=== PATIENT | male | born 1965 | race African-American/Black ===

== ENCOUNTER 2019-03-27 03:23 | Inpatient (IN) | payer OTHER ==
[~2019-03-27] VITALS: Ht 188 cm; Wt 69.0 kg
[2019-03-27] VITALS (54 sets, daily range): BP systolic 106–154; BP diastolic 36–99
[2019-03-27] MEDS ORDERED: SODIUM CHLORIDE 0.9% 1,000 ML IV ONE (03:42)
[2019-03-27 04:09] LABS: HEMATOCRIT. 40.7 % (36.0-48.0); MEAN CORPUSCULAR HEMOGLOBIN 25.1 pg (28.0-32.0); MEAN CORPUSCULAR VOLUME 78.9 fL (81.0-99.0); MEAN PLATELET VOLUME 7.9 fl (7.4-10.4); PLATELET 323 x1000/uL (130-400); RED BLOOD CELL COUNT 5.16 mill/uL (4.2-5.4); RED CELL DISTRIBUTION WIDTH 16.3 % (11.6-14.6)
[2019-03-27 04:16] LABS: CHLORIDE 108 mEq/L (98-107)
[2019-03-27 04:21] LABS: ETHANOL BLOOD < 10 mg/dL
[2019-03-27 04:25] LABS: CREATINE KINASE 40 IU/L (26-192)
[2019-03-27] MEDS ORDERED: DEXAMETHASONE 10 MG/ML VIAL IV ONE (04:30)
[2019-03-27] MEDS ORDERED: MANNITOL 12.5G (25%) VIAL 50ML IV ONE (05:15)
[2019-03-27 06:21] LABS: PLATELET ESTIMATE NORMAL
[2019-03-27] MEDS ORDERED: GADOBENATE DIMEGLUMINE 529 MG/ML 10ML IV ONE (10:19)
[2019-03-27] MEDS ORDERED: NICARDIPINE 100 MG in SODIUM CHLORIDE 0.9% 60 ML IV PRN (10:45)
[2019-03-27] MEDS ORDERED: MORPHINE SULFATE 2 MG/ML CPJ (NOT FOR IM USE) IV PRN (10:45)
[2019-03-27] MEDS: DEXAMETHASONE 10 MG/ML VIAL IV SCH ×4 (11:53→23:17)
[2019-03-27] MEDS: DEXT 5%/LACTATED RINGERS 1,000 ML IV SCH (11:54)
[2019-03-27] MEDS ORDERED: LEVETIRACETAM 500MG PREMIX 100 ML IV SCH (17:00)
[2019-03-27] MEDS ORDERED: MANNITOL 20% 200 ML IV ONE (19:45)
[2019-03-27] MEDS: LEVETIRACETAM 500MG in SODIUM CHLORIDE 0.9% 100ML IV SCH (21:14)
[2019-03-27] MEDS: MANNITOL 20% 100 ML IV SCH (23:17)
[2019-03-28] VITALS (93 sets, daily range): BP systolic 74–153; BP diastolic 30–114
[2019-03-28 03:24] LABS: CLARITY URINE CLEAR (CLEAR); COLOR URINE YELLOW (YELLOW); KETONES URINE NEGATIVE (NEGATIVE); LEUKOCYTE ESTERASE URINE NEGATIVE (NEGATIVE); NITRITE URINE NEGATIVE (NEGATIVE); OCCULT BLOOD URINE NEGATIVE (NEGATIVE); PROTEIN URINE NEGATIVE (NEGATIVE); SPECIFIC GRAVITY URINE 1.037 (1.005-1.030); UROBILINOGEN URINE 0.2 E.U./dL (0.2-1.0)
[2019-03-28] MEDS: DEXAMETHASONE 10 MG/ML VIAL IV SCH ×6 (03:37→23:23)
[2019-03-28] MEDS: MANNITOL 20% 100 ML IV SCH ×5 (03:38→19:50)
[2019-03-28 03:41] LABS: *AMPHETAMINES SCREEN URINE NEGATIVE (NEGATIVE); *BARBITURATES SCREEN URINE NEGATIVE (NEGATIVE); *BENZODIAZEPINES SCREEN URINE NEGATIVE (NEGATIVE); *COCAINE SCREEN URINE NEGATIVE (NEGATIVE); METHADONE URINE SCREEN NEGATIVE (NEGATIVE)
[2019-03-28 03:42] LABS: CANNABINOID URINE SCREEN NEGATIVE (NEGATIVE); OPIATES URINE SCREEN NEGATIVE (NEGATIVE); PHENCYCLIDINE URINE SCREEN NEGATIVE (NEGATIVE)
[2019-03-28] MEDS: DEXT 5%/LACTATED RINGERS 1,000 ML IV SCH (08:54)
[2019-03-28] MEDS: LEVETIRACETAM 500MG in SODIUM CHLORIDE 0.9% 100ML IV SCH ×2 (10:07→21:01)
[2019-03-28 18:18] LABS: HEMATOCRIT. 39.4 % (42.0-52.0); HEMOGLOBIN. 11.9 g/dL (14.0-18.0); MEAN CORPUSCULAR HEMOGLOBIN 24.7 pg (28.0-32.0); MEAN CORPUSCULAR VOLUME 81.7 fL (80.0-94.0); MEAN PLATELET VOLUME 9.2 fl (7.4-10.4); PLATELET 292 x1000/uL (130-400); RED BLOOD CELL COUNT 4.82 mill/uL (4.7-6.1); RED CELL DISTRIBUTION WIDTH 16.2 % (11.6-14.6)
[2019-03-28 18:21] LABS: PROTHROMBIN TIME 10.4 sec (9.6-11.0)
[2019-03-28 18:30] LABS: CHLORIDE 107 mEq/L (98-107)
[2019-03-28 19:35] LABS: PLATELET ESTIMATE NORMAL
[2019-03-29] VITALS (92 sets, daily range): BP systolic 80–145; BP diastolic 56–99
[2019-03-29] MEDS: DEXAMETHASONE 10 MG/ML VIAL IV SCH ×5 (03:08→19:26)
[2019-03-29] MEDS: DEXT 5%/LACTATED RINGERS 1,000 ML IV SCH (03:09)
[2019-03-29] MEDS ORDERED: BACITRACIN 15GM TUBE TOP ONE (06:33)
[2019-03-29] MEDS ORDERED: POVIDONE-IODINE OINT 28.4GM TOP ONE (06:33)
[2019-03-29] MEDS ORDERED: THROMBIN (BOVINE) 5000 UNITS/VIAL TOP ONE (06:33)
[2019-03-29] MEDS ORDERED: LIDOCAINE HCL/EPINEPHRINE 1%-EPI 1:100,000 20 ML VIAL ONE (06:34)
[2019-03-29] MEDS ORDERED: BACITRACIN 50,000 UNITS/VIAL ONE (06:34)
[2019-03-29] MEDS ORDERED: NORMAL SALINE 0.9% 10 ML SYR ONE (06:34)
[2019-03-29] MEDS ORDERED: MIDAZOLAM HCL 2 MG/2 ML VIAL ONE (07:13)
[2019-03-29] MEDS ORDERED: ROCURONIUM BROMIDE 10MG/ML VIAL 5ML IV ONE (07:13)
[2019-03-29] MEDS ORDERED: FENTANYL CITRATE/PF 50MCG/ML 2ML VIAL ONE ×2 (07:13→08:07)
[2019-03-29] MEDS ORDERED: PROPOFOL 200MG/20ML VIAL IV ONE (07:13)
[2019-03-29] MEDS ORDERED: GLYCOPYRROLATE 0.2 MG/ML 2ML VIAL ONE ×2 (07:13→09:47)
[2019-03-29] MEDS ORDERED: NEOSTIGMINE METHYLSULFATE 1MG/ML 10 ML VIAL ONE (07:13)
[2019-03-29] MEDS ORDERED: NICARDIPINE 100 MG in SODIUM CHLORIDE 0.9% 60 ML IV PRN (07:15)
[2019-03-29] MEDS ORDERED: MANNITOL 20% 500 ML IV ONE (07:20)
[2019-03-29] MEDS ORDERED: PHENYTOIN SODIUM 500MG in SODIUM CHLORIDE 0.9% 50ML IV SCH (07:30)
[2019-03-29] MEDS ORDERED: DEXAMETHASONE 4MG/ML 1ML VIAL ONE (08:07)
[2019-03-29] MEDS ORDERED: ONDANSETRON HCL 4MG/2ML INJ ONE (08:07)
[2019-03-29] MEDS ORDERED: HYDROMORPHONE HCL/PF 2MG/ML (OR) ONE (08:22)
[2019-03-29] MEDS: MORPHINE SULFATE 4 MG/ML CPJ (NOT FOR IM USE) IV PRN ×3 (10:34→19:27)
[2019-03-29] MEDS ORDERED: CEFAZOLIN 1000MG PREMIX 50 ML IV SCH (10:45)
[2019-03-29] MEDS: LEVETIRACETAM 500MG in SODIUM CHLORIDE 0.9% 100ML IV SCH ×2 (11:20→21:20)
[2019-03-29 12:33] LABS: HEMATOCRIT. 35.2 % (42.0-52.0); HEMOGLOBIN. 10.9 g/dL (14.0-18.0); MEAN PLATELET VOLUME 8.5 fl (7.4-10.4); PLATELET 253 x1000/uL (130-400); RED BLOOD CELL COUNT 4.34 mill/uL (4.7-6.1); RED CELL DISTRIBUTION WIDTH 16.3 % (11.6-14.6)
[2019-03-29 12:40] LABS: CHLORIDE 112 mEq/L (98-107)
[2019-03-29 13:05] LABS: BG BASE EXCESS -0.1 mmol/L (-2.0-2.0); BG CARBOXYHEMOGLOBIN 0.1 % (0.5-1.5); BG DEOXYHEMOGLOBIN 0.1 % (0.0-5.0); BG FRACTION INSPIRED OXYGEN 100; BG HCO3 ACT 24.5 mmol/L (22.0-26.0); BG METHEMOGLOBIN 0.4 % (0.0-1.5); BG OXYGEN SATURATION 99.9 % (92.0-98.5); BG OXYHEMOGLOBIN 99.4 % (94.0-97.0); BG PCO2 39.8 mmHg (35.0-45.0); BG PH 7.408 (7.350-7.450); BG SAMPLE SITE RIGHT BRACHIAL; BG TIDAL VOLUME(mL) 500 mL; BG TOTAL HEMOGLOBIN 11.4 g/dL (12.0-18.0); BG VENT MODE VENT - A/C; BG VENT RATE 14 set
[2019-03-29] MEDS ORDERED: CEFAZOLIN SODIUM 1000MG/VIAL IV SCH (14:00)
[2019-03-29 14:01] LABS: PLATELET ESTIMATE NORMAL
[2019-03-29] MEDS ORDERED: LIDOCAINE HCL 1% 20ML VIAL (Pyxis) INJ ONE (14:05)
[2019-03-29] MEDS: PHENYTOIN SODIUM 100MG/2ML VIAL IV SCH ×2 (14:48→21:26)
[2019-03-29] MEDS: CEFAZOLIN 1000MG PREMIX 50 ML IV SCH ×2 (14:57→21:20)
[2019-03-29 15:19] LABS: BG BASE EXCESS -0.9 mmol/L (-2.0-2.0); BG DEOXYHEMOGLOBIN 0.8 % (0.0-5.0); BG FRACTION INSPIRED OXYGEN 40; BG HCO3 ACT 23.8 mmol/L (22.0-26.0); BG METHEMOGLOBIN 0.4 % (0.0-1.5); BG OXYGEN SATURATION 99.2 % (92.0-98.5); BG OXYHEMOGLOBIN 98.8 % (94.0-97.0); BG PCO2 39.7 mmHg (35.0-45.0); BG PH 7.396 (7.350-7.450); BG PO2 190.8 mmHg (75.0-100.0); BG PRESSURE SUPPORT 8; BG SAMPLE SITE RIGHT BRACHIAL; BG TOTAL HEMOGLOBIN 10.7 g/dL (12.0-18.0); BG VENT MODE VENT - CPAP
[2019-03-30] VITALS (61 sets, daily range): BP systolic 97–131; BP diastolic 59–95
[2019-03-30] MEDS: DEXAMETHASONE 10 MG/ML VIAL IV SCH ×4 (00:22→23:53)
[2019-03-30] MEDS: DEXT 5%/LACTATED RINGERS 1,000 ML IV SCH ×2 (00:22→20:36)
[2019-03-30] MEDS: MORPHINE SULFATE 4 MG/ML CPJ (NOT FOR IM USE) IV PRN ×4 (01:06→23:54)
[2019-03-30 05:22] LABS: CHLORIDE 113 mEq/L (98-107); HEMATOCRIT. 29.7 % (42.0-52.0); HEMOGLOBIN. 9.2 g/dL (14.0-18.0); MEAN CORPUSCULAR HEMOGLOBIN 24.8 pg (28.0-32.0); MEAN CORPUSCULAR VOLUME 80.1 fL (80.0-94.0); MEAN PLATELET VOLUME 8.9 fl (7.4-10.4); PLATELET 230 x1000/uL (130-400); RED BLOOD CELL COUNT 3.71 mill/uL (4.7-6.1); RED CELL DISTRIBUTION WIDTH 15.9 % (11.6-14.6)
[2019-03-30] MEDS: CEFAZOLIN 1000MG PREMIX 50 ML IV SCH ×3 (05:41→21:25)
[2019-03-30] MEDS: PHENYTOIN SODIUM 100MG/2ML VIAL IV SCH ×3 (05:41→21:25)
[2019-03-30] MEDS: LEVETIRACETAM 500MG in SODIUM CHLORIDE 0.9% 100ML IV SCH ×2 (09:53→20:35)
[2019-03-30 13:16] LABS: PLATELET ESTIMATE NORMAL
[2019-03-30] MEDS ORDERED: SODIUM CHLORIDE 3% 500 ML IV SCH (13:45)
[2019-03-30] MEDS ORDERED: MANNITOL 20% (20GM/100ML) BAG 500ML PREMIX IV ONE ×2 (13:45)
[2019-03-30] MEDS ORDERED: MANNITOL 20% (20GM/100ML) BAG 500ML PREMIX IV SCH (13:45)
[2019-03-30] MEDS ORDERED: FUROSEMIDE 20MG/2ML VIAL IVP NR (13:45)
[2019-03-30] MEDS ORDERED: DEXAMETHASONE 10 MG/ML VIAL IV NR ×2 (13:45)
[2019-03-30] MEDS ORDERED: DEXAMETHASONE 4MG/ML 1ML VIAL IV SCH (14:00)
[2019-03-30] MEDS ORDERED: MANNITOL 20% 200 ML IV NR (15:00)
[2019-03-30] MEDS ORDERED: SODIUM CHLORIDE 3% 500 ML IV ONE (16:00)
[2019-03-30] MEDS: MANNITOL 20% 100 ML IV SCH (20:35)
[2019-03-31] VITALS (48 sets, daily range): BP systolic 91–137; BP diastolic 57–84
[2019-03-31] MEDS: MANNITOL 20% 100 ML IV SCH ×3 (01:54→13:53)
[2019-03-31] MEDS: MORPHINE SULFATE 4 MG/ML CPJ (NOT FOR IM USE) IV PRN ×3 (01:55→20:55)
[2019-03-31] MEDS: DEXAMETHASONE 10 MG/ML VIAL IV SCH ×4 (05:23→23:59)
[2019-03-31] MEDS: CEFAZOLIN 1000MG PREMIX 50 ML IV SCH ×2 (05:24→13:56)
[2019-03-31] MEDS: PHENYTOIN SODIUM 100MG/2ML VIAL IV SCH ×3 (05:24→20:56)
[2019-03-31 05:49] LABS: HEMATOCRIT. 29.9 % (42.0-52.0); HEMOGLOBIN. 9.1 g/dL (14.0-18.0); MEAN CORPUSCULAR HEMOGLOBIN 24.3 pg (28.0-32.0); MEAN CORPUSCULAR VOLUME 79.6 fL (80.0-94.0); PLATELET 223 x1000/uL (130-400); RED BLOOD CELL COUNT 3.75 mill/uL (4.7-6.1)
[2019-03-31 06:20] LABS: CHLORIDE 116 mEq/L (98-107)
[2019-03-31 08:04] LABS: PLATELET ESTIMATE NORMAL
[2019-03-31] MEDS: LEVETIRACETAM 500MG in SODIUM CHLORIDE 0.9% 100ML IV SCH ×2 (08:29→20:55)
[2019-03-31] MEDS ORDERED: SODIUM CHLORIDE 3% 500 ML IV ONE ×2 (16:00→22:00)
[2019-03-31] MEDS: DEXT 5%/LACTATED RINGERS 1,000 ML IV SCH (18:18)
[2019-04-01] VITALS (41 sets, daily range): BP systolic 96–144; BP diastolic 61–102
[2019-04-01] MEDS: DEXAMETHASONE 10 MG/ML VIAL IV SCH ×4 (06:33→23:45)
[2019-04-01] MEDS: PHENYTOIN SODIUM 100MG/2ML VIAL IV SCH ×3 (06:33→21:03)
[2019-04-01 07:07] LABS: HEMATOCRIT. 31.7 % (42.0-52.0); HEMOGLOBIN. 9.8 g/dL (14.0-18.0); MEAN CORPUSCULAR HEMOGLOBIN 24.7 pg (28.0-32.0); MEAN CORPUSCULAR VOLUME 79.5 fL (80.0-94.0); MEAN PLATELET VOLUME 8.8 fl (7.4-10.4); PLATELET 175 x1000/uL (130-400); RED BLOOD CELL COUNT 3.98 mill/uL (4.7-6.1); RED CELL DISTRIBUTION WIDTH 15.7 % (11.6-14.6)
[2019-04-01 07:13] LABS: CHLORIDE 109 mEq/L (98-107)
[2019-04-01 08:30] LABS: PLATELET ESTIMATE NORMAL
[2019-04-01] MEDS: LEVETIRACETAM 500MG in SODIUM CHLORIDE 0.9% 100ML IV SCH ×2 (09:22→21:02)
[2019-04-01] MEDS: DEXT 5%/LACTATED RINGERS 1,000 ML IV SCH (11:38)
[2019-04-01] MEDS: MORPHINE SULFATE 2 MG/ML CPJ (NOT FOR IM USE) IV PRN ×2 (11:58→21:03)
[2019-04-02] VITALS (47 sets, daily range): BP systolic 98–152; BP diastolic 60–92
[2019-04-02] MEDS: DEXAMETHASONE 10 MG/ML VIAL IV SCH ×2 (05:44→11:57)
[2019-04-02] MEDS: PHENYTOIN SODIUM 100MG/2ML VIAL IV SCH ×3 (05:44→21:23)
[2019-04-02] MEDS: LEVETIRACETAM 500MG in SODIUM CHLORIDE 0.9% 100ML IV SCH ×2 (09:39→21:21)
[2019-04-02 09:53] LABS: HEMOGLOBIN. 10.2 g/dL (14.0-18.0); MEAN CORPUSCULAR HEMOGLOBIN 25.1 pg (28.0-32.0); MEAN CORPUSCULAR VOLUME 78.8 fL (80.0-94.0); MEAN PLATELET VOLUME 8.9 fl (7.4-10.4); PLATELET 210 x1000/uL (130-400); RED BLOOD CELL COUNT 4.06 mill/uL (4.7-6.1); RED CELL DISTRIBUTION WIDTH 15.3 % (11.6-14.6)
[2019-04-02 10:03] LABS: CHLORIDE 104 mEq/L (98-107)
[2019-04-02] MEDS ORDERED: METOCLOPRAMIDE HCL 5MG TABLET PO PRN (11:30)
[2019-04-02] MEDS: DEXT 5%/LACTATED RINGERS 1,000 ML IV SCH (11:55)
[2019-04-02] MEDS: MORPHINE SULFATE 2 MG/ML CPJ (NOT FOR IM USE) IV PRN (18:23)
[2019-04-02] MEDS: DEXAMETHASONE 4MG/ML 1ML VIAL IV SCH (21:21)
[2019-04-03] VITALS (35 sets, daily range): BP systolic 36–130; BP diastolic 29–79
[2019-04-03] MEDS: DEXT 5%/LACTATED RINGERS 1,000 ML IV SCH (05:54)
[2019-04-03] MEDS: PHENYTOIN SODIUM 100MG/2ML VIAL IV SCH ×3 (05:54→22:10)
[2019-04-03] MEDS: LEVETIRACETAM 500MG in SODIUM CHLORIDE 0.9% 100ML IV SCH (08:45)
[2019-04-03] MEDS: DEXAMETHASONE 4MG/ML 1ML VIAL IV SCH ×2 (08:45→22:10)
[2019-04-03 09:34] LABS: BASOPHILS % 0.1 % (0.0-2.0); EOSINOPHILS % 1.2 % (0.0-5.0); HEMATOCRIT. 29.1 % (42.0-52.0); HEMOGLOBIN. 9.5 g/dL (14.0-18.0); LYMPHOCYTES % 7.4 % (20.0-50.0); MEAN CORPUSCULAR HEMOGLOBIN 25.4 pg (28.0-32.0); MEAN CORPUSCULAR VOLUME 77.6 fL (80.0-94.0); MEAN PLATELET VOLUME 8.6 fl (7.4-10.4); MONOCYTES % 6.6 % (2.0-8.0); NEUTROPHILS % 84.7 % (40.0-76.0); PLATELET 204 x1000/uL (130-400); RED BLOOD CELL COUNT 3.74 mill/uL (4.7-6.1); RED CELL DISTRIBUTION WIDTH 15.4 % (11.6-14.6)
[2019-04-03 09:52] LABS: CHLORIDE 104 mEq/L (98-107)
[2019-04-03] MEDS ORDERED: POTASSIUM CHLORIDE 20MEQ/PACKET PO NR (11:45)
[2019-04-03] MEDS: ACETAMINOPHEN 325MG TABLET PO PRN (12:14)
[2019-04-03 12:35] LABS: PLATELET ESTIMATE NORMAL
[2019-04-03] MEDS: LEVETIRACETAM 500MG TABLET PO SCH (22:10)
[2019-04-04 00:49] VITALS: BP 92/58
[2019-04-04] MEDS: DEXT 5%/LACTATED RINGERS 1,000 ML IV SCH (03:17)
[2019-04-04 04:00] VITALS: BP 96/62
[2019-04-04] MEDS: PHENYTOIN SODIUM 100MG/2ML VIAL IV SCH ×3 (05:50→21:28)
[2019-04-04] MEDS: LEVETIRACETAM 500MG TABLET PO SCH ×2 (08:37→21:28)
[2019-04-04] MEDS: DEXAMETHASONE 4MG/ML 1ML VIAL IV SCH ×2 (08:37→21:28)
[2019-04-04 08:43] VITALS: BP 83/50
[2019-04-04 09:16] LABS: BASOPHILS % 0.1 % (0.0-2.0); CHLORIDE 103 mEq/L (98-107); EOSINOPHILS % 3.8 % (0.0-5.0); HEMATOCRIT. 29.1 % (42.0-52.0); HEMOGLOBIN. 9.3 g/dL (14.0-18.0); LYMPHOCYTES % 10.8 % (20.0-50.0); MEAN CORPUSCULAR HEMOGLOBIN 24.9 pg (28.0-32.0); MEAN CORPUSCULAR VOLUME 77.9 fL (80.0-94.0); MEAN PLATELET VOLUME 8.4 fl (7.4-10.4); MONOCYTES % 7.1 % (2.0-8.0); NEUTROPHILS % 78.2 % (40.0-76.0); PLATELET 228 x1000/uL (130-400); RED BLOOD CELL COUNT 3.73 mill/uL (4.7-6.1); RED CELL DISTRIBUTION WIDTH 15.6 % (11.6-14.6)
[2019-04-04 12:27] VITALS: BP 121/70
[2019-04-04 16:17] VITALS: BP 83/48
[2019-04-04 20:00] VITALS: BP 106/60
[2019-04-05 00:29] VITALS: BP 101/66
[2019-04-05 04:00] VITALS: BP 97/58
[2019-04-05] MEDS: DEXT 5%/LACTATED RINGERS 1,000 ML IV SCH (05:05)
[2019-04-05] MEDS: PHENYTOIN SODIUM 100MG/2ML VIAL IV SCH ×3 (05:09→21:49)
[2019-04-05] MEDS: DEXAMETHASONE 4MG/ML 1ML VIAL IV SCH ×2 (09:18→21:49)
[2019-04-05] MEDS: LEVETIRACETAM 500MG TABLET PO SCH ×2 (09:18→21:49)
[2019-04-05 12:00] VITALS: BP 91/57
[2019-04-05 16:00] VITALS: BP 85/53
[2019-04-05 20:00] VITALS: BP 95/58
[2019-04-05 20:48] VITALS: BP 92/59
[2019-04-06 00:30] VITALS: BP 101/52
[2019-04-06 04:37] VITALS: BP 95/62
[2019-04-06] MEDS: DEXT 5%/LACTATED RINGERS 1,000 ML IV SCH (06:03)
[2019-04-06] MEDS: PHENYTOIN SODIUM 100MG/2ML VIAL IV SCH ×3 (06:03→21:11)
[2019-04-06] MEDS: DEXAMETHASONE 4MG/ML 1ML VIAL IV SCH ×2 (09:49→20:56)
[2019-04-06] MEDS: LEVETIRACETAM 500MG TABLET PO SCH ×2 (09:49→20:56)
[2019-04-06 12:00] VITALS: BP 106/64
[2019-04-06 16:00] VITALS: BP 121/80
[2019-04-06 20:28] VITALS: BP 127/57
[2019-04-07 00:39] VITALS: BP 111/74
[2019-04-07 04:00] VITALS: BP 106/62
[2019-04-07] MEDS: PHENYTOIN SODIUM 100MG/2ML VIAL IV SCH ×3 (05:48→21:10)
[2019-04-07] MEDS: DEXAMETHASONE 4MG/ML 1ML VIAL IV SCH ×2 (09:03→21:10)
[2019-04-07] MEDS: LEVETIRACETAM 500MG TABLET PO SCH ×2 (09:03→21:10)
[2019-04-07 12:00] VITALS: BP 109/68
[2019-04-07 16:00] VITALS: BP 98/61
[2019-04-07 20:00] VITALS: BP 103/65
[2019-04-07] MEDS: ACETAMINOPHEN 325MG TABLET PO PRN (21:10)
[2019-04-08 00:23] VITALS: BP 109/67
[2019-04-08 04:00] VITALS: BP 122/63
[2019-04-08] MEDS: ACETAMINOPHEN 325MG TABLET PO PRN (05:01)
[2019-04-08] MEDS: PHENYTOIN SODIUM 100MG/2ML VIAL IV SCH ×3 (05:01→22:11)
[2019-04-08] MEDS: DEXT 5%/LACTATED RINGERS 1,000 ML IV SCH (07:58)
[2019-04-08 08:00] VITALS: BP 97/60
[2019-04-08] MEDS: LEVETIRACETAM 500MG TABLET PO SCH ×2 (08:01→22:11)
[2019-04-08] MEDS: DEXAMETHASONE 4MG/ML 1ML VIAL IV SCH ×2 (08:01→22:10)
[2019-04-08 12:31] VITALS: BP 113/67
[2019-04-08 16:00] VITALS: BP 132/84
[2019-04-08 20:00] VITALS: BP 99/60
[2019-04-09] VITALS: BP 104/66
[2019-04-09 04:00] VITALS: BP 111/69
[2019-04-09] MEDS: PHENYTOIN SODIUM 100MG/2ML VIAL IV SCH (06:51)
[2019-04-09] MEDS: DEXT 5%/LACTATED RINGERS 1,000 ML IV SCH (06:51)
[2019-04-09 08:00] VITALS: BP 101/63
[2019-04-09] MEDS: LEVETIRACETAM 500MG TABLET PO SCH (08:37)
[2019-04-09] MEDS: DEXAMETHASONE 4MG/ML 1ML VIAL IV SCH (08:37)
[2019-04-09] MEDS: ACETAMINOPHEN 325MG TABLET PO PRN (08:37)
[2019-04-09 12:00] VITALS: BP 98/59
[2019-04-09 14:39] VITALS: BP 98/59
[2019-04-09 16:00] VITALS: BP 125/72
== END 2019-04-09 17:00 | disposition home or self-care (01) | DRG 21 ==
LOC: ER 03:23 → EDSEX 03:23 → MICUNO 05:21 → EDBEDREQ 05:22 → EDBEDREQTM 05:22 → ENRESERV 09:56 → 6WST 04-03 19:00
PROVIDERS: ADMIT Internal Medicine; ATTEND Internal Medicine
PROC: 00B00ZZ Excision of Brain, Open Approach (ICD-10-PCS; principal; 2019-03-28)
PROC: 00U207Z Supplement Dura Mater with Autologous Tissue Substitute, Open Approach (ICD-10-PCS; 2019-03-28)
PROC: 0NQ00ZZ Repair Skull, Open Approach (ICD-10-PCS; 2019-03-28)
PROC: B54MZZA Ultrasonography of Right Upper Extremity Veins, Guidance (ICD-10-PCS; 2019-03-29)
PROC: 05HY33Z Insertion of Infusion Device into Upper Vein, Percutaneous Approach (ICD-10-PCS; 2019-03-29)
DX: C79.31 Secondary malignant neoplasm of brain (principal); G93.5 Compression of brain; J96.90 Respiratory failure, unspecified, unspecified whether with hypoxia or hypercapnia; G93.40 Encephalopathy, unspecified; E87.2 Acidosis; R19.00 Intra-abdominal and pelvic swelling, mass and lump, unspecified site; D64.9 Anemia, unspecified; E87.0 Hyperosmolality and hypernatremia; G82.50 Quadriplegia, unspecified; I10 Essential (primary) hypertension; R47.02 Dysphasia; R47.1 Dysarthria and anarthria; R26.9 Unspecified abnormalities of gait and mobility; R47.01 Aphasia; F10.21 Alcohol dependence, in remission; F17.200 Nicotine dependence, unspecified, uncomplicated; Z93.1 Gastrostomy status; Z93.3 Colostomy status; Z85.038 Personal history of other malignant neoplasm of large intestine; Z85.818 Personal history of malignant neoplasm of other sites of lip, oral cavity, and pharynx; Z90.49 Acquired absence of other specified parts of digestive tract; Z78.1 Physical restraint status; Z79.899 Other long term (current) drug therapy
CPT/HCPCS: 36415; 36600; 70486; 70490; 70553; 71045; 74176; 76937; 80048; 80185; 80305; 80307; 80320; 80329; 81003; 82140; 82375; 82378; 82550; 82805; 82962; 83605; 84295; 84443; 88307; 88331; 92610; 93005; 93970; 94003; 96374; 97110; 97116; 97162; 97167; 97530; 97535; 99291; A6261; A9577; C1713; C1725; J0690; J1100; J1165; J1170; J1940; J1953; J2150; J2250; J2270; J2405; J2704; J2710; J3010; J3490; J7030; J7040; J7050; J7120; J7121; A4315; G0480

== ENCOUNTER 2019-06-18 22:25 | Emergency (ER) | payer MEDICAID, OTHER ==
[~2019-06-18] VITALS: Ht 188 cm; Wt 81.0 kg
[2019-06-18] MEDS ORDERED: ONDANSETRON HCL 4MG/2ML INJ IV STA (23:38)
[2019-06-18] MEDS ORDERED: MORPHINE SULFATE 4 MG/ML CPJ (NOT FOR IM USE) IV STA (23:38)
[2019-06-19 00:25] LABS: EOSINOPHILS % 7.5 % (0.0-5.0); HEMATOCRIT. 37.7 % (42.0-52.0); HEMOGLOBIN. 12.3 g/dL (14.0-18.0); LYMPHOCYTES % 12.4 % (20.0-50.0); MEAN CORPUSCULAR HEMOGLOBIN 24.7 pg (28.0-32.0); MEAN CORPUSCULAR VOLUME 75.9 fL (80.0-94.0); MEAN PLATELET VOLUME 7.3 fl (7.4-10.4); MONOCYTES % 5.7 % (2.0-8.0); NEUTROPHILS % 73.4 % (40.0-76.0); PLATELET 333 x1000/uL (130-400); RED BLOOD CELL COUNT 4.96 mill/uL (4.7-6.1)
[2019-06-19 00:26] LABS: CHLORIDE 105 mEq/L (98-107)
[2019-06-19 00:54] LABS: CLARITY URINE CLEAR (CLEAR); COLOR URINE DARK YELLOW (YELLOW); KETONES URINE NEGATIVE (NEGATIVE); LEUKOCYTE ESTERASE URINE NEGATIVE (NEGATIVE); NITRITE URINE NEGATIVE (NEGATIVE); OCCULT BLOOD URINE NEGATIVE (NEGATIVE); PH URINE 5.5 (4.5-8.0); PROTEIN URINE 1+ (NEGATIVE); SPECIFIC GRAVITY URINE 1.038 (1.005-1.030); UROBILINOGEN URINE 0.2 E.U./dL (0.2-1.0)
[2019-06-19] MEDS ORDERED: HYDROMORPHONE HCL/PF 2MG/ML CPJ IV ONE (02:00)
[2019-06-19] MEDS ORDERED: IOHEXOL-300 100 ML BOTTLE ONE (02:22)
[2019-06-19] MEDS: CHLORHEXIDINE GLUCONATE 0.12% MOUTHWASH UDC SSP SCH ×2 (02:40→10:47)
[2019-06-19] MEDS ORDERED: AMPICILLIN SOD/SULBACTAM NA 3 G in SODIUM CHLORIDE 0.9% 100 ML IV SCH (03:45)
[2019-06-19] MEDS ORDERED: VANCOMYCIN 1 G PREMIX 200 ML IV SCH (03:45)
[2019-06-19 10:48] VITALS: BP 114/70
== END 2019-06-19 11:07 | disposition short-term general hospital (02) ==
LOC: ER 22:25 → CANBEDREQ 06-19 12:28
DX: R68.84 Jaw pain (principal); Z85.038 Personal history of other malignant neoplasm of large intestine
CPT/HCPCS: 36415; 70491; 71045; 80053; 81003; 83880; 84484; 85025; 87040; 87077; 87086; 87186; 93005; 96365; 96366; 96368; 96375; 99285; J0295; J1170; J2270; J2405; J3370; J7050; Q9967

== ENCOUNTER 2019-07-17 21:25 | Emergency (ER) | payer MEDICAID, OTHER ==
[~2019-07-17] VITALS: Ht 188 cm; Wt 79.0 kg
[2019-07-18] MEDS ORDERED: ONDANSETRON HCL 4MG/2ML INJ IV STA (01:47)
[2019-07-18] MEDS ORDERED: SODIUM CHLORIDE 0.9% 1,000 ML IV ONE ×2 (01:47→17:19)
[2019-07-18] MEDS ORDERED: KETOROLAC 30MG/ML VIAL IV STA (01:47)
[2019-07-18] MEDS ORDERED: MORPHINE SULFATE 4 MG/ML CPJ (NOT FOR IM USE) IV STA (01:47)
[2019-07-18 02:39] LABS: HEMATOCRIT. 36.8 % (42.0-52.0); HEMOGLOBIN. 11.9 g/dL (14.0-18.0); MEAN CORPUSCULAR HEMOGLOBIN 24.9 pg (28.0-32.0); MEAN PLATELET VOLUME 7.4 fl (7.4-10.4); PLATELET 342 x1000/uL (130-400); RED BLOOD CELL COUNT 4.78 mill/uL (4.7-6.1); RED CELL DISTRIBUTION WIDTH 18.1 % (11.6-14.6)
[2019-07-18 02:44] LABS: CHLORIDE 96 mEq/L (98-107)
[2019-07-18] MEDS ORDERED: PIPERACILLIN/TAZ 3.375G PREMIX 50 ML IV ONE (04:45)
[2019-07-18] MEDS ORDERED: VANCOMYCIN 1 G PREMIX 200 ML IV SCH (04:45)
[2019-07-18] MEDS ORDERED: MORPHINE SULFATE 10 MG/ML CPJ IM ONE (06:15)
[2019-07-18 06:22] LABS: PLATELET ESTIMATE NORMAL
[2019-07-18] MEDS ORDERED: MORPHINE SULFATE 4 MG/ML CPJ (NOT FOR IM USE) IV ONE ×2 (08:45→14:45)
[2019-07-18] MEDS ORDERED: IOHEXOL-300 100 ML BOTTLE ONE (16:14)
[2019-07-18 19:09] VITALS: BP 100/64
== END 2019-07-18 19:12 | disposition home or self-care (01) ==
LOC: ER 21:25
DX: C02.9 Malignant neoplasm of tongue, unspecified (principal); G89.29 Other chronic pain
CPT/HCPCS: 36415; 70491; 80053; 83690; 85025; 96365; 96368; 96372; 96375; 96376; 99284; J1885; J2270; J2405; J2543; J3370; J7030; Q9967; Z7610

== ENCOUNTER 2019-09-17 20:08 | Emergency (ER) | payer OTHER ==
[~2019-09-17] VITALS: Ht 167.6 cm; Wt 47.0 kg
[2019-09-17] MEDS ORDERED: SODIUM CHLORIDE 0.9% 1,000 ML IV ONE (20:53)
[2019-09-17] MEDS ORDERED: ONDANSETRON HCL 4MG/2ML INJ IV STA (21:21)
[2019-09-17] MEDS ORDERED: SODIUM CHLORIDE 0.9% 1000ML BAG (SEPSIS BOLUS) IV ONE (21:30)
[2019-09-17] MEDS ORDERED: HYDROMORPHONE HCL/PF 2MG/ML CPJ IV ONE (21:30)
[2019-09-17 22:22] LABS: BASOPHILS % 0.6 % (0.0-2.0); EOSINOPHILS % 2.3 % (0.0-5.0); HEMATOCRIT. 32.3 % (42.0-52.0); HEMOGLOBIN. 10.4 g/dL (14.0-18.0); LYMPHOCYTES % 10.1 % (20.0-50.0); MEAN CORPUSCULAR HEMOGLOBIN 24.2 pg (28.0-32.0); MEAN CORPUSCULAR VOLUME 74.8 fL (80.0-94.0); MEAN PLATELET VOLUME 8.1 fl (7.4-10.4); MONOCYTES % 8.5 % (2.0-8.0); NEUTROPHILS % 78.5 % (40.0-76.0); PLATELET 347 x1000/uL (130-400); RED BLOOD CELL COUNT 4.32 mill/uL (4.7-6.1); RED CELL DISTRIBUTION WIDTH 17.7 % (11.6-14.6)
[2019-09-17 22:29] LABS: CHLORIDE 106 mEq/L (98-107)
[2019-09-17 22:33] LABS: PARTIAL THROMBOPLASTIN TIME 26.7 sec (23.4-31.0); PROTHROMBIN TIME 10.7 sec (9.6-11.0)
[2019-09-17 23:12] LABS: CLARITY URINE CLEAR (CLEAR); COLOR URINE YELLOW (YELLOW); KETONES URINE NEGATIVE (NEGATIVE); LEUKOCYTE ESTERASE URINE NEGATIVE (NEGATIVE); NITRITE URINE NEGATIVE (NEGATIVE); OCCULT BLOOD URINE NEGATIVE (NEGATIVE); PH URINE >=9.0 (4.5-8.0); PROTEIN URINE TRACE (NEGATIVE); SPECIFIC GRAVITY URINE 1.026 (1.005-1.030); UROBILINOGEN URINE 0.2 E.U./dL (0.2-1.0)
[2019-09-18] MEDS ORDERED: VANCOMYCIN 1 G PREMIX 200 ML IV SCH (02:15)
[2019-09-18] MEDS ORDERED: PIPERACILLIN/TAZ 3.375G PREMIX 50 ML IV ONE (02:15)
[2019-09-18] MEDS ORDERED: FENTANYL CITRATE/PF 50MCG/ML 2ML VIAL IV ONE (03:45)
[2019-09-18 04:03] VITALS: BP 135/88
== END 2019-09-18 04:20 | disposition short-term general hospital (02) ==
LOC: ER 20:08 → CANBEDREQ 09-18 05:27
DX: A41.9 Sepsis, unspecified organism (principal); R65.20 Severe sepsis without septic shock; C10.9 Malignant neoplasm of oropharynx, unspecified; Z98.890 Other specified postprocedural states; Z90.49 Acquired absence of other specified parts of digestive tract; Z93.1 Gastrostomy status; Z93.0 Tracheostomy status; Z87.891 Personal history of nicotine dependence; Z85.038 Personal history of other malignant neoplasm of large intestine
CPT/HCPCS: 36415; 71045; 80053; 81003; 83605; 85025; 85610; 85730; 86850; 86900; 86901; 87040; 87086; 93005; 96365; 96366; 96368; 96375; 99291; J1170; J2405; J2543; J3010; J3370; J7030